=== PATIENT | female | born 1990 | race Caucasian/White ===

== ENCOUNTER → 2016-06-14 | Outpatient (CLI) | payer OTHER ==
[~2016-06-14] MED LIST: SINCALIDE (KINEVAC) 5 MCG ONE
== END | disposition home or self-care (01) ==
LOC: PETCFH 08:59
PROVIDERS: ATTEND Family Medicine
DX: K83.5 Biliary cyst (principal); R10.9 Unspecified abdominal pain
CPT/HCPCS: 78227; A9537; J2805

== ENCOUNTER 2018-04-16 20:43 | Emergency (ER) | payer OTHER ==
[~2018-04-16] VITALS: Ht 160 cm; Wt 57.7 kg
--- NOTE | 2018-04-16 20:55 | NUR ---
Pt ambulates to room from triage with steady gait and balance.
--- NOTE | 2018-04-16 21:02 | NUR ---
FIRST CONTACT WITH PT. Pt states, "Starting yesterday, I have been having pain here and here (left flank and left lower quadrant of abdomen). I haven't vomitted but I fell nauseas. The pain hasn't gone away. I started a new control. My period started a day or two later than normal, but it has been the same as my other periods otherwise. I am at the end of my cycle now." Pt denies vomitting, diarrhea, cp, sob, blood in urine, blood in stool, pain with urination, burining with urination, or increased frequency of urination. Pt ambulates to bathroom with steady gait and balance to provide ua. NADN.
[2018-04-16] MEDS ORDERED: MUSCLE RELAXERS (21:12)
[2018-04-16] MEDS ORDERED: DICL50TA2 PO (21:12)
[2018-04-16] MEDS ORDERED: ONDANSETRON 2MG/ML, 2ML ONE (21:17)
[2018-04-16] MEDS ORDERED: KETOROLAC 30 MG/1 ML ONE (21:17)
[2018-04-16] MEDS ORDERED: MORPHINE SULFATE 4 MG/ML, 1ML ONE ×2 (21:17→23:25)
[2018-04-16] MEDS ORDERED: SODIUM CHLORIDE 0.9% 1,000ML IVBOLUS ONE (21:30)
[2018-04-16] MEDS ORDERED: KETOROLAC 30 MG/1 ML IVPush ONE (21:30)
[2018-04-16] MEDS ORDERED: SODIUM CHLORIDE FLUSH 10ML SYR IVF ONE (21:30)
[2018-04-16] MEDS ORDERED: ONDANSETRON 2MG/ML, 2ML IVPush ONE (21:30)
[2018-04-16] MEDS: MORPHINE SULFATE 4 MG/ML, 1ML IVPush PRN ×2 (21:31→23:31)
[2018-04-16 21:37] LABS: MICROSCOPIC AUTO
[2018-04-16 21:40] LABS: CULTURE INDICATED? YES
[2018-04-16 21:48] LABS: BASOPHILS # (AUTO) 0.04 x10^3/uL (0-0.1); BASOPHILS % (AUTO) 0 % (0-1); EOSINOPHILS # (AUTO) 0.03 x10^3/uL (0-0.4); EOSINOPHILS % (AUTO) 0 % (1-7); LYMPHOCYTES # (AUTO) 1.83 x10^3/uL (1-3.4); LYMPHOCYTES % (AUTO) 14 % (22-44); MD NO; MEAN CORPUSCULAR HEMOGLOBIN 31.5 pg (27.0-34.8); MEAN CORPUSCULAR VOLUME 90.1 fL (80-100); MEAN PLATELET VOLUME 8.7 fL (7.4-10.4); MONOCYTES # (AUTO) 0.93 x10^3/uL (0.2-0.8); MONOCYTES % (AUTO) 7 % (2-9); NEUTROPHILS # (AUTO) 10.27 x10^3/uL (1.8-6.8); NEUTROPHILS % (AUTO) 78 % (42-75); PLATELET COUNT 168 x10^3/uL (130-400); RED BLOOD COUNT 4.74 x10^6/uL (3.82-5.3); RED CELL DISTRIBUTION WIDTH 12.8 % (9.6-15.2)
[2018-04-16 22:01] LABS: ALBUMIN 3.8 g/dL (3.4-5.0); ANION GAP 8 mmol/L (5-15); CALCIUM 8.6 mg/dL (8.5-10.1); CHLORIDE 107 mmol/L (98-107)
--- NOTE | 2018-04-16 22:01 | NUR ---
CT PENDING NEGATIVE BETA.
[2018-04-16 22:07] LABS: ALANINE AMINOTRANSFERASE 19 U/L (12-78); ALKALINE PHOSPHATASE 73 U/L (45-117); BILIRUBIN,TOTAL 0.8 mg/dL (0.2-1.0); CREATININE 0.82 mg/dL (0.55-1.02); TOTAL PROTEIN 7.4 g/dL (6.4-8.2)
--- NOTE | 2018-04-16 22:14 | NUR ---
Pt states, "Before my pain meds it was a 6, now it's about a 2." Provided chapstick per pt request.
--- NOTE | 2018-04-16 22:47 | NUR ---
PIV fluids finished infusing per EMAR.
[2018-04-16 22:48] VITALS: BP 118/70
[2018-04-16] MEDS ORDERED: CEFTRIAXONE PMX 1GM/50ML 50 ML ONE (22:51)
[2018-04-16] MEDS ORDERED: CEFTRIAXONE PMX 1GM/50ML 50 ML IV ONE (23:00)
--- NOTE | 2018-04-16 23:32 | NUR ---
Pt requesting pain medication per EMAR. Pt states, "I am at a 3 now, I don't want it to get bad again." Provided pt medication per EMAR. Pt's mom at bedside states she will be driving pt home.
== END 2018-04-16 23:54 | disposition home or self-care (01) ==
LOC: ED 21:17
DX: N30.01 Acute cystitis with hematuria (principal); N10 Acute pyelonephritis; R11.2 Nausea with vomiting, unspecified
CPT/HCPCS: 36415; 74176; 80053; 81001; 83690; 84703; 85025; 87077; 87086; 87186; 96361; 96365; 96375; 96376; 99284; J0696; J1885; J2405; J7030

== ENCOUNTER 2018-10-02 06:53 | Emergency (ER) | payer OTHER ==
[~2018-10-02] VITALS: Ht 160 cm; Wt 53.0 kg
[~2018-10-02 06:53] MED LIST changes: +DICL50TA2 PO; +MUSCLE RELAXERS; -SINCALIDE (KINEVAC) 5 MCG ONE
--- NOTE | 2018-10-02 07:05 | NUR ---
NA X1. PT IN RESTROOM
--- NOTE | 2018-10-02 07:17 | NUR ---
PT REFUSING WHEELCHAIR. WALKING TO BATHROOM WITH MOTHER
--- NOTE | 2018-10-02 07:18 | NUR ---
PT NOW REQUESTING WHEELCHAIR
[2018-10-02] MEDS ORDERED: birth control (07:45)
--- NOTE | 2018-10-02 07:54 | NUR ---
PT WHEELED TO ROOM. DRY HEAVING WITH SMALL AMOUNT OF BILE THROWN UP. STATES SHE HAS BEEN VOMITING AND HAD DIARRHEA THIS MORNING SINCE 0400. IV ATTEMTED X2, UNSUCCESSFUL. PT STATES SHE IS HAVING ABDOMINAL PAIN. VSS. CALL LIGHT IN REACH. PT'S FAMILY AT BEDSIDE.
[2018-10-02] MEDS ORDERED: FAMOTIDINE 20 MG/2 ML ONE (08:12)
[2018-10-02] MEDS ORDERED: DICYCLOMINE 10 MG/ML, 2ML ONE (08:12)
[2018-10-02] MEDS ORDERED: ONDANSETRON 2MG/ML, 2ML ONE (08:12)
--- NOTE | 2018-10-02 08:22 | NUR ---
PT MEDICATED PER EMAR. RESTING IN BED. CALL LIGHT IN REACH. NADN. VSS.
[2018-10-02] MEDS ORDERED: SODIUM CHLORIDE 0.9% 1,000ML IVBOLUS ONE ×2 (08:30→10:30)
[2018-10-02] MEDS ORDERED: FAMOTIDINE 20 MG/2 ML IVP ONE (08:30)
[2018-10-02] MEDS ORDERED: ONDANSETRON 2MG/ML, 2ML IVPush ONE (08:30)
[2018-10-02] MEDS ORDERED: DICYCLOMINE 10 MG/ML, 2ML IM ONE (08:30)
[2018-10-02] MEDS ORDERED: SODIUM CHLORIDE FLUSH 10ML SYR IVF ONE (08:30)
[2018-10-02 08:38] LABS: BASOPHILS % (AUTO) 0 % (0-1); EOSINOPHILS # (AUTO) 0.01 x10^3/uL (0-0.4); EOSINOPHILS % (AUTO) 0 % (1-7); LYMPHOCYTES # (AUTO) 1.14 x10^3/uL (1-3.4); LYMPHOCYTES % (AUTO) 8 % (22-44); MD NO; MEAN CORPUSCULAR HGB CONC 33.6 g/dL (32.4-35.8); MEAN CORPUSCULAR VOLUME 92.4 fL (80-100); MEAN PLATELET VOLUME 8.4 fL (7.4-10.4); MONOCYTES # (AUTO) 0.64 x10^3/uL (0.2-0.8); MONOCYTES % (AUTO) 5 % (2-9); NEUTROPHILS # (AUTO) 11.75 x10^3/uL (1.8-6.8); NEUTROPHILS % (AUTO) 87 % (42-75); PLATELET COUNT 163 x10^3/uL (130-400); RED BLOOD COUNT 5.44 x10^6/uL (3.82-5.3); RED CELL DISTRIBUTION WIDTH 12.8 % (9.6-15.2)
--- NOTE | 2018-10-02 08:44 | NUR ---
PT AMBULATORY TO [facility] AT THIS TIME.
[2018-10-02 08:49] LABS: ALANINE AMINOTRANSFERASE 33 U/L (12-78); ALBUMIN 4.1 g/dL (3.4-5.0); ANION GAP 14 mmol/L (5-15); CALCIUM 8.5 mg/dL (8.5-10.1); CHLORIDE 114 mmol/L (98-107); CREATININE 0.98 mg/dL (0.55-1.02)
--- NOTE | 2018-10-02 08:50 | NUR ---
REPORT FROM BERNADINE ADORNO AND BERNADINE ALFARO. ASSUMED CARE OF PATIENT AT THIS TIME, SMALL AMOUNT OF URINE COLLECTED AND WALKED TO LAB BY BERNADINE ADORNO. PATIENT BACK TO BED, MONITORS IN PLACE, IVF RUNNING. AWAITING UA RESULTS. CALL LIGHT WITHIN REACH,
[2018-10-02 08:53] LABS: ALKALINE PHOSPHATASE 77 U/L (45-117); BILIRUBIN,TOTAL 0.3 mg/dL (0.2-1.0); TOTAL PROTEIN 7.8 g/dL (6.4-8.2)
[2018-10-02 08:59] LABS: MICROSCOPIC AUTO
[2018-10-02 09:03] LABS: CULTURE INDICATED? NO
--- NOTE | 2018-10-02 10:08 | NUR ---
NEW ORDERS, AWAITING CT. PATIENT SITTING IN SILVIO FRANZ. FAMILY AT BEDSIDE.
[2018-10-02] MEDS ORDERED: HYDROmorphone 1 MG/ML, 1ML INJ IV ONE (10:30)
[2018-10-02] MEDS ORDERED: PROMETHAZINE 25 MG/ML, 1ML IM ONE (10:30)
[2018-10-02] MEDS ORDERED: PROMETHAZINE 25 MG/ML, 1ML ONE (10:56)
[2018-10-02] MEDS ORDERED: HYDROmorphone 2 MG/ML, 1ML ONE (10:56)
--- NOTE | 2018-10-02 11:10 | NUR ---
CT RESULTS BACK, CHART UP FOR RECHECK. MEDICATIONS ADMINISTERED PER ORDER, VS UPDATED IN CHART, AWAITING FURTHER ORDERS, NADN.
--- NOTE | 2018-10-02 11:27 | NUR ---
PATIENT REPORTS PAIN FEELS BETTER, CHART UP FOR RECHECK, AWAITING FURTHER ORDERS, VS UPDATED IN CHART, NADN.
--- NOTE | 2018-10-02 12:18 | NUR ---
NEW ORDERS FOR 2ND LACTIC LEVELS TO BE DRAWN, AWAITING RESULTS. PATIENT/FAMILY UPDATED ON POC.
--- NOTE | 2018-10-02 12:53 | NUR ---
RESULTS BACK, CHART UP FOR RECHECK.
--- NOTE | 2018-10-02 13:08 | NUR ---
AT BEDSIDE FOR RECHECK.
[2018-10-02 13:57] VITALS: BP 109/56
--- NOTE | 2018-10-02 13:57 | NUR ---
Patient/Caregiver given discharge instructions and they have confirmed that they understand the instructions. Patient ambulatory with steady gait.
[2018-10-02] MEDS ORDERED: OMNIPAQUE 350 MG/ML, 100ML BOTTLE ONE (15:15)
== END 2018-10-02 13:59 | disposition home or self-care (01) ==
LOC: ED 08:10
DX: A08.4 Viral intestinal infection, unspecified (principal); E86.0 Dehydration; D72.829 Elevated white blood cell count, unspecified; F17.200 Nicotine dependence, unspecified, uncomplicated
CPT/HCPCS: 36415; 74177; 80053; 81001; 83605; 83690; 84703; 85025; 96361; 96372; 96374; 96375; 99284; J0500; J1170; J2405; J2550; J3490; J7030; Q9967

== ENCOUNTER 2018-10-22 08:02 | Outpatient (CLI) | payer OTHER | END 2018-10-22 23:59 | disposition home or self-care (01) | LOC: PETCFH 08:02 | PROVIDERS: ATTEND Nurse Practitioner Family | DX: K83.5 Biliary cyst (principal); K82.8 Other specified diseases of gallbladder | CPT/HCPCS: 78227; A9537 ==